=== PATIENT | female | born 1950 | race Caucasian/White ===

== ENCOUNTER 2017-10-10 10:45 | Emergency (ER) | payer MEDICARE, OTHER ==
[2017-10-10] MEDS: DIPHTH/TET/ACEL PERTUSS (ADULT) 0.5 ML VIAL IM* (11:14)
[2017-10-10] MEDS: LIDOCAINE 1% (MDV) 10 ML INJ INJ (11:17)
== END 2017-10-10 13:30 | disposition home or self-care (01) ==
LOC: FTE 10:45
DX: S01.81XA Laceration without foreign body of other part of head, initial encounter (principal); I10 Essential (primary) hypertension; W01.198A Fall on same level from slipping, tripping and stumbling with subsequent striking against other object, initial encounter; Y92.9 Unspecified place or not applicable; Z23 Encounter for immunization; Z79.01 Long term (current) use of anticoagulants
CPT/HCPCS: 12011; 70486; 90471; 90715; 99284-25